=== PATIENT | female | born 1970 | race Hispanic/Latino ===

== ENCOUNTER 2019-03-27 14:04 | Observation (INO) | payer MEDICAID ==
[~2019-03-27] VITALS: Ht 154.9 cm; Wt 100.0 kg
[~2019-03-27 14:04] MED LIST changes: -ATOR20TA65 PO; -DiphenhydrAMINE HCL 50 MG/ML VIAL IVP SCH; -METHYLPREDNISOLONE SOD SUCC 125MG/2ML VIAL IVP SCH; -METO25 PO; -METOPROLOL TARTRATE 25 MG TAB ONE; -MORPHINE SULFATE 2 MG/ML 1ML SYG ONE; -NITROGLYCERIN 0.4 MG SL TAB SL ONE; -SODIUM CHLORIDE 0.9% 500ML 500 ML IV SCH
[2019-03-27 14:35] LABS: BASOPHILS % (AUTO) 0.4 % (0.0-5.0); EOSINOPHILS % (AUTO) 1.4 % (0.0-8.0); HEMATOCRIT 42.3 % (36-48); LYMPHOCYTES % (AUTO) 31.4 % (21.0-51.0); MEAN CORPUSCULAR HGB CONC 32.9 g/dL (32.0-36.0); MEAN CORPUSCULAR VOLUME 85.1 fL (79-99); MONOCYTES % (AUTO) 5.3 % (3.0-13.0); NEUTROPHILS % (AUTO) 60.9 % (40.0-77.0); PLATELET COUNT (AUTO) 385 K/uL (130-400); RED BLOOD CELL COUNT(AUTO) 4.97 MIL/uL (4.00-5.50); RED CELL DISTRIBUTION WIDTH 14.1 % (11.0-15.5); WHITE BLOOD COUNT (AUTO) 13.1 K/uL (4.8-10.8)
[2019-03-27 14:46] LABS: CREATININE 0.8 mg/dL (0.5-1.5); POTASSIUM 3.8 mmol/L (3.5-5.1)
[2019-03-27 14:47] LABS: INR 0.88 (0.85-1.15); PROTHROMBIN TIME 9.3 SEC (9.6-11.6)
[2019-03-27 14:50] LABS: ALBUMIN 3.2 g/dL (3.5-5.0); BILIRUBIN,TOTAL 0.2 mg/dL (0.2-1.0); TOTAL PROTEIN, SERUM 7.4 g/dL (6.0-8.3)
[2019-03-27] MEDS ORDERED: ASPIRIN 325 MG TABLET ONE (15:10)
[2019-03-27] MEDS ORDERED: NITROGLYCERIN 0.4 MG SL TAB SL ONE (15:10)
[2019-03-27] MEDS ORDERED: SODIUM CHLORIDE 0.9% 1000ML 1,000 ML IV ONE (15:11)
[2019-03-27] MEDS ORDERED: MORPHINE SULFATE 2 MG/ML 1ML SYG IVP PRN (16:45)
--- NOTE | 2019-03-27 17:00 | NUR ---
INITIAL PT SEEN IN [facility] 5 IN ER - FRIEND AT SIDE.PT STATES IS AMBULATORY , INPD, NO DME, DOES NOT DIRVE, HAS LT DE[facility] WHO WILL PROVIDE TRANSPORT HOME; [facility] IS HOME, OSITO MORAN AT BEDSIDE, PT WILL BE ADMITTED FOR [facility] PLANNED FOR AM. CM TO FOLLOW Addendum: 03/28/19 at 0959 by TRACEY LASSITER RN CM Amended: Links added.
[2019-03-27] MEDS ORDERED: ACETAMINOPHEN 325 MG TAB PO PRN ×2 (18:30)
[2019-03-27] MEDS ORDERED: MORPHINE SULFATE 2 MG/ML 1ML SYG IV PRN (18:30)
[2019-03-27] MEDS ORDERED: LORAZEPAM 0.5 MG TABLET PO PRN (18:30)
[2019-03-27] MEDS ORDERED: ONDANSETRON HCL 4 MG/2 ML VIAL IV PRN (18:30)
[2019-03-27] MEDS ORDERED: NITROGLYCERIN 0.4 MG SL TAB SL PRN (18:30)
[2019-03-27 19:57] LABS: BASOPHILS % (AUTO) 0.4 % (0.0-5.0); EOSINOPHILS % (AUTO) 1.3 % (0.0-8.0); HEMATOCRIT 38.8 % (36-48); LYMPHOCYTES % (AUTO) 30.8 % (21.0-51.0); MEAN CORPUSCULAR HEMOGLOBIN 28.3 pg (27.0-33.0); MEAN CORPUSCULAR HGB CONC 33.5 g/dL (32.0-36.0); MEAN CORPUSCULAR VOLUME 84.5 fL (79-99); NEUTROPHILS % (AUTO) 63.1 % (40.0-77.0); PLATELET COUNT (AUTO) 357 K/uL (130-400); RED BLOOD CELL COUNT(AUTO) 4.59 MIL/uL (4.00-5.50); WHITE BLOOD COUNT (AUTO) 12.6 K/uL (4.8-10.8)
[2019-03-27] MEDS ORDERED: FAMOTIDINE/PF 20 MG/2 ML VIAL IV SCH (21:00)
[2019-03-27] MEDS ORDERED: METOPROLOL TARTRATE 25 MG TAB PO SCH (21:00)
[2019-03-27 22:13] LABS: APPEARANCE,URINE Clear (CLEAR); BILIRUBIN,URINE Negative (NEGATIVE); COLOR,URINE Yellow (YELLOW); GLUCOSE, URINE (UA) Negative (NEGATIVE); KETONES,URINE Negative (NEGATIVE); LEUKOCYTE ESTERASE ,URINE Small (NEGATIVE); NITRATE,URINE Negative (NEGATIVE); OCCULT BLOOD,URINE Negative (NEGATIVE); PH,URINE 6.5 (5.0-8.0); PROTEIN,URINE Negative (NEGATIVE)
[2019-03-27 22:23] LABS: BACTERIA,URINE Moderate /HPF (None Seen); MUCUS,URINE Few LPF (None Seen); SQUAMOUS EPITHELIAL CELL,UR Few /HPF (0-2)
[2019-03-27 23:53] VITALS: BP 120/74
[2019-03-28] VITALS (10 sets, daily range): BP systolic 112–131; BP diastolic 66–91
[2019-03-28 04:55] LABS: HEMOGLOBIN A1C 6.2 % (4.0-6.0)
[2019-03-28 06:02] LABS: THYROID STIMULATING HORMONE 2.18 uIU/mL (0.36-3.74)
[2019-03-28] MEDS ORDERED: LIDOCAINE HCL 2% 20ML ONE (07:22)
[2019-03-28] MEDS ORDERED: IOHEXOL-350 50ML VIAL IV ONE (07:22)
[2019-03-28] MEDS ORDERED: IOHEXOL 350 MG/ML 100ML INFUS..BTL IV ONE (07:22)
[2019-03-28] MEDS ORDERED: HEPARIN SODIUM 1000UNIT/ML 10ML VIAL ONE (07:22)
[2019-03-28] MEDS ORDERED: METHYLPREDNISOLONE SOD SUCC 125MG/2ML VIAL IVP SCH (07:45)
[2019-03-28] MEDS ORDERED: DiphenhydrAMINE HCL 50 MG/ML VIAL IV SCH (07:45)
--- NOTE | 2019-03-28 07:45 | NUR ---
ASSESSMENT ENCOUNTERED PT A&OX3, CALM COOPERATIVE AND DOES NOT APPEAR TO BE IN NAY DISTRESS NOR ANY NEURO DEFICITS PRESENT. PT DENIES PAIN, SOB, NAUSEA. PT IS AMBULATORY, GAIT STEADY AND STRONG WITH STAND BY ASSIST. PT IS NPO PENDING [facility] BY DR MURO. CALL LIGHT WITHIN REACH, FAMILY AT BEDSIDE.
[2019-03-28] MEDS ORDERED: METHYLPREDNISOLONE SOD SUCC 125MG/2ML VIAL ONE (07:50)
[2019-03-28] MEDS ORDERED: DiphenhydrAMINE HCL 50 MG/ML VIAL ONE (07:50)
[2019-03-28] MEDS ORDERED: MIDAZOLAM HCL 1 MG/ML 2ML VIAL ONE (08:07)
[2019-03-28] MEDS ORDERED: ATORVASTATIN CALCIUM 20 MG TABLET PO SCH (09:00)
--- NOTE | 2019-03-28 09:15 | NUR ---
POST PROCEDURE RECEIVED PT FROM STAFF PHARMACIST, IN FLAT POSITION, A&OX3, CALM COOPERATIVE AND DOES NOT APPEAR TO BE IN ANY DISTRESS NOR ANY NEURO DEFICITS PRESENT. RT GROIN SOFT WITH NO OOZING OR HEMATOMA PRESENT. DP/PT PULSES PALPABLE. PT ON BEDREST FOR 3 HOURS UNTIL 1145. CALL LIGHT WITHIN REACH, FAMILY AT BEDSIDE.
[2019-03-28] MEDS ORDERED: ATOR20TA65 PO (10:42)
[2019-03-28] MEDS ORDERED: METO25 PO (10:42)
--- NOTE | 2019-03-28 12:15 | NUR ---
BEDREST COMPLETE PT AMBULATING TO BATHROOM AND BACK TO BED, GAIT SLOW BUT STEADY WITH STAND BY ASSIST, RT GROIN SOFT WITH NO OOZING OR HEMATOMA PRESENT. DP/PT PULSES PALPABLE. CALL LIGHT WITHIN REACH, FAMILY AT BEDSIDE.
--- NOTE | 2019-03-28 13:30 | NUR ---
DISCHARGE INSTRUCTIONS GIVEN, PIV REMOVED AND INTACT, DISCHARGED HOME TO FAMILY VEHICLE VIA WHEELCHAIR.
== END 2019-03-28 13:45 | disposition home or self-care (01) ==
LOC: EDH 14:04 → EDHIP 14:05 → INTOOBSV 14:05 → 2AH 21:35
PROVIDERS: ADMIT Internal Medicine; ATTEND Internal Medicine
DX: R07.9 Chest pain, unspecified (principal); I10 Essential (primary) hypertension; E78.5 Hyperlipidemia, unspecified; F31.9 Bipolar disorder, unspecified; I20.8 Other forms of angina pectoris; M54.12 Radiculopathy, cervical region; E78.00 Pure hypercholesterolemia, unspecified; J44.9 Chronic obstructive pulmonary disease, unspecified; E11.9 Type 2 diabetes mellitus without complications; Z88.8 Allergy status to other drugs, medicaments and biological substances
CPT/HCPCS: 36415 ×2; 71045; 80053; 80061; 82550; 83036; 84443; 84484 ×4; 85025 ×2; 85610; 85730; 93005 ×2; 93458; 99284; C1760; C1894; G0378 ×11; J1200; J1644; J2250; J2930; J3490; J7030; Q9965; Q9967 ×2; 99156; 99157

== ENCOUNTER → 2019-03-27 | Outpatient (CLI) | payer MEDICAID ==
[~2019-03-27] VITALS: Ht 156.2 cm; Wt 100.2 kg
[~2019-03-27] MED LIST: ALBU2.5V2 IH; ALBU8.5H8 IH; AMLO5TAB9 PO; ASPI-1197 PO; ATOR20TA65 PO; DiphenhydrAMINE HCL 50 MG/ML VIAL IVP SCH; HYDROXINE PO; ISOS30TA6 PO; LISI10TA7 PO; LUBI24CA2 PO; METHYLPREDNISOLONE SOD SUCC 125MG/2ML VIAL IVP SCH; METO25 PO; METOPROLOL TARTRATE 25 MG TAB ONE; MOME17N NS; MORPHINE SULFATE 2 MG/ML 1ML SYG ONE; NITROGLYCERIN 0.4 MG SL TAB SL ONE; PRED10TA3 PO; SIMV-46 PO; SODIUM CHLORIDE 0.9% 500ML 500 ML IV SCH
[2019-03-27 12:35] LABS: BASOPHILS % (AUTO) 0.5 % (0.0-5.0); EOSINOPHILS % (AUTO) 1.2 % (0.0-8.0); HEMATOCRIT 42.9 % (36-48); LYMPHOCYTES % (AUTO) 28.6 % (21.0-51.0); MEAN CORPUSCULAR HEMOGLOBIN 28.4 pg (27.0-33.0); MEAN CORPUSCULAR HGB CONC 32.9 g/dL (32.0-36.0); MEAN CORPUSCULAR VOLUME 86.5 fL (79-99); MONOCYTES % (AUTO) 4.8 % (3.0-13.0); NEUTROPHILS % (AUTO) 64.3 % (40.0-77.0); PLATELET COUNT (AUTO) 390 K/uL (130-400); RED BLOOD CELL COUNT(AUTO) 4.96 MIL/uL (4.00-5.50); RED CELL DISTRIBUTION WIDTH 14.2 % (11.0-15.5); WHITE BLOOD COUNT (AUTO) 12.5 K/uL (4.8-10.8)
[2019-03-27 12:42] VITALS: BP 131/69
[2019-03-27 12:44] LABS: APPEARANCE,URINE Clear (CLEAR); BILIRUBIN,URINE Negative (NEGATIVE); COLOR,URINE Yellow (YELLOW); CREATININE 0.9 mg/dL (0.5-1.5); GLUCOSE, URINE (UA) Negative (NEGATIVE); KETONES,URINE Negative (NEGATIVE); LEUKOCYTE ESTERASE ,URINE Large (NEGATIVE); NITRATE,URINE Negative (NEGATIVE); OCCULT BLOOD,URINE Negative (NEGATIVE); PH,URINE 6.5 (5.0-8.0); POTASSIUM 3.6 mmol/L (3.5-5.1); PROTEIN,URINE Negative (NEGATIVE)
[2019-03-27 12:47] LABS: INR 0.89 (0.85-1.15); PARTIAL THROMBOPLASTIN TIME 27.5 SEC (26.3-35.5); PROTHROMBIN TIME 9.4 SEC (9.6-11.6)
[2019-03-27 12:49] LABS: BACTERIA,URINE Rare /HPF (None Seen); RBC,URINE 0-1 /HPF (0-1); WBC,URINE 0-1 /HPF (0-1)
[2019-03-27 12:50] LABS: SQUAMOUS EPITHELIAL CELL,UR Rare /HPF (0-2)
--- NOTE | 2019-03-27 18:06 | NUR ---
REPORTED ABNORMAL LABS AND URINE RESULTS TO DR. MURO, NO NEW ORDERS, OK TO PROCEED.
== END | disposition home or self-care (01) ==
LOC: DAH 10:00 → EDSTATUS 13:00
PROVIDERS: ATTEND Internal Medicine Cardiovascular Disease
DX: Z01.818 Encounter for other preprocedural examination (principal); R94.39 Abnormal result of other cardiovascular function study; Z88.3 Allergy status to other anti-infective agents; Z79.01 Long term (current) use of anticoagulants; Z79.899 Other long term (current) drug therapy; Z82.49 Family history of ischemic heart disease and other diseases of the circulatory system; Z83.3 Family history of diabetes mellitus
CPT/HCPCS: 36415; 80048; 81001; 85025; 85610; 85730; 93005